=== PATIENT | female | born 1960 | race Caucasian/White ===

== ENCOUNTER → 2016-08-22 | Outpatient (CLI) | payer OTHER | END | disposition home or self-care (01) | LOC: LABWHC1 13:21 | PROVIDERS: ATTEND Thoracic Surgery (Cardiothoracic Vascular Surgery) | DX: Z01.812 Encounter for preprocedural laboratory examination (principal) | CPT/HCPCS: 80051; 82947; 85027; 86850; 86900; 86901 ==

== ENCOUNTER 2016-08-29 08:15 | Day surgery (SDC) | payer OTHER ==
[2016-08-22 14:18] LABS: CH 32.1; CHCM 34.2; HCT 42.9 % (34.0-46.0); HGB 14.4 gm/dL (11.4-16.0); MCH 31.7 pg (25.0-35.0); MCHC 33.6 g/dL (31.0-37.0); MCV 94.3 fL (80.0-100.0); Mean Platelet Volume 7.4; RBC 4.55 m/uL (3.80-5.40); RDW 13.4 % (11.5-15.5); WBC 6.2 k/uL (3.8-10.6)
[2016-08-22 14:38] LABS: Potassium 4.2 mmol/L (3.5-5.1)
[2016-08-25 16:17] VITALS: BMI 27.4
[~2016-08-29 08:15] MED LIST: DEXAMETHASONE SOD PHOSPHATE 10 MG/ML 1 ML VIAL IV ONE; LACTATED RINGERS 1,000 ML IV SCH; LIDOCAINE 1% 20 ML VIAL (10MG/ML) FOR IV START INTRADERMA PRN; MIDAZOLAM 2 MG/2 ML VIAL IV PRN; ONDANSETRON 4 MG/2 ML VIAL IVP ONE; SCOPOLAMINE 1.5MG/72HR PATCH TRANSDERM ONE; ceFAZolin 1,000 MG in DEXTROSE/WATER 1 50ML.BAG IV ONE
[2016-08-29 09:03] LABS: Glucose,Whole Blood 153 mg/dL (75-99)
[2016-08-29] MEDS ORDERED: PROPOFOL 10 MG/ML 20 ML VIAL IV ONE (09:34)
[2016-08-29] MEDS ORDERED: NEOSTIGMINE 1 MG/ML 10 ML VIAL ONE (09:34)
[2016-08-29] MEDS ORDERED: DEXAMETHASONE SOD PHOS (MDV) 100 MG/10 ML VIAL ONE (09:34)
[2016-08-29] MEDS ORDERED: LIDOCAINE 1% INJ 10MG/ML (20 ML MDV) ONE (09:34)
[2016-08-29] MEDS ORDERED: fentaNYL (PF) 50 MCG/ML 2 ML AMP ONE (09:34)
[2016-08-29] MEDS ORDERED: MIDAZOLAM 2 MG/2 ML VIAL ONE (09:34)
[2016-08-29] MEDS ORDERED: SUCCINYLCHOLINE CHLORIDE 100 MG/5 ML SYR IV ONE (09:34)
[2016-08-29] MEDS ORDERED: VECURONIUM 10 MG VIAL IV ONE (09:34)
[2016-08-29] MEDS ORDERED: GLYCOPYRROLATE 0.2 MG/ML 2 ML VIAL ONE (09:34)
[2016-08-29] MEDS ORDERED: LACTATED RINGERS 1,000 ML IV ONE ×2 (10:30→14:15)
[2016-08-29 11:01] VITALS: TEMP 96.8
[2016-08-29] MEDS ORDERED: ONDANSETRON 4 MG/2 ML VIAL IVP ONE (11:06)
[2016-08-29] MEDS: HYDROmorphone 1 MG/ML 1 ML SYRINGE IVP PRN ×2 (11:11→11:20)
[2016-08-29] MEDS ORDERED: PROMETHAZINE INJ 25 MG/ML 1 ML VIAL IVPB ONE (11:17)
[2016-08-29 11:22] LABS: Glucose,Whole Blood 189 mg/dL (75-99)
--- NOTE | 2016-08-29 11:53 | XR ---
EXAMINATION TYPE: XR chest 1V portable DATE OF EXAM: 08/29/2016 COMPARISON: NONE HISTORY: post op Mediastinoscopy TECHNIQUE: Single AP portable frontal upright view of the chest is obtained. FINDINGS: There is low lung volumes with patchy left basilar atelectasis and/or infiltrate. Right lauren ng remains clear. No large pleural effusion or pneumothorax is seen bilaterally. The cardiac silhoue tte size is within normal limits. The osseous structures are intact. IMPRESSION: Lung volumes with patchy left basilar atelectasis and/or infiltrate.
[2016-08-29] MEDS ORDERED: METOCLOPRAMIDE 5 MG/ML 2 ML VIAL IVP ONE (13:31)
[2016-08-29 14:23] VITALS: RESP 18
[2016-08-29 15:12] VITALS: BP 118/63; PULSE 97
--- NOTE | 2016-08-29 15:23 | P.OP ---
Date of Procedure: 08/29/16 Preoperative Diagnosis: Mediastinal lymphadenopathy Postoperative Diagnosis: Same Procedure(s) Performed: Mediastinal endoscopy with lymph node biopsy Implants: Anesthesia: [place] Surgeon: Aníbal Hurtado Older Adult Social Work Specialist #1: Chaitanya Recinos Estimated Blood Loss (ml): 25 IV fluids (ml): 800 Pathology: other (Right paratracheal lymph node sent for pathology and culture) Condition: stable Disposition: PACU Indications for Procedure: Mediastinal lymphadenopathy Operative Findings: Heart rubbery right paratracheal lymph nodes Description of Procedure: The patient was brought to the operating room placed supine on the operating table anesthetized and intubated. The neck was extended and the anterior neck and chest sterilely prepped and draped. Transverse incision was made through the old thyroidectomy incision carried down through skin and subcutaneous tissue. Was continued vertically in the midline between the strap muscles. The pretracheal plane was entered and dissected bluntly with a finger into the mediastinum. Hard rubbery lymph nodes could be palpated. The mediastinoscope was introduced and careful dissection was used to dissected out the lymph nodes. These were sent for permanent section as well as culture. The mediastinum was briefly packed with a sponge. On removing the sponge there was no evident bleeding. Strap muscles were reapproximated with 3-0 Vicryl. Subcutaneous tissues were closed with 3-0 Vicryl. Skin was closed with a running 3-0 Vicryl. Skin glue and a Band-Aid dressing were applied the patient was awakened and transferred to recovery in stable condition. Plan - Discharge Summary New Discharge Prescriptions: Continue Milk Thistle 150 mg PO DAILY glipiZIDE [Glipizide] 5 mg PO DAILY Multivitamins, Thera [Multivitamin (formulary)] 1 tab PO DAILY Loratadine [Claritin] 10 mg PO DAILY metFORMIN HCL [Metformin HCl] 1,000 mg PO BID L.acidoph,Paracasei, B.lactis [Probiotic] 1 each PO DAILY Discharge Medication List L.acidoph,Paracasei, B.lactis [Probiotic] 1 each PO DAILY 08/25/16 [History] Loratadine [Claritin] 10 mg PO DAILY 08/25/16 [History] Milk Thistle 150 mg PO DAILY 08/25/16 [History] Multivitamins, Thera [Multivitamin (formulary)] 1 tab PO DAILY 08/25/16 [History ] glipiZIDE [Glipizide] 5 mg PO DAILY 08/25/16 [History] metFORMIN HCL [Metformin HCl] 1,000 mg PO BID 08/25/16 [History] Follow up Appointment(s)/Referral(s): Juancarlos Kothari MD [STAFF PHYSICIAN] - 09/05/16 12:00 pm (Follow up at the [facility] office.) Aníbal Hurtado MD [STAFF PHYSICIAN] - 09/03/16 12:30 pm Lavonne Pires NPC [REFERRING] - 09/03/16 9:00 am Jody Sargent DO [Doctor of Osteopathic Medicine] - 09/08/16 3:00 pm Patient Instructions/Handouts: *Surgery [facility] - (Anesthesia) Discharge Instructions Outpatient Surgery, Lymph Node Biopsy (DC) Activity/Diet/Wound Care/Special Instructions: BANDAID MAY BE REMOVED TOMORROW. Discharge Disposition: HOME SELF-CARE
== END 2016-08-29 15:26 | disposition home or self-care (01) ==
LOC: OR 08:15
PROVIDERS: ATTEND Thoracic Surgery (Cardiothoracic Vascular Surgery)
DX: L04.0 Acute lymphadenitis of face, head and neck (principal); E11.9 Type 2 diabetes mellitus without complications; M19.90 Unspecified osteoarthritis, unspecified site; Z80.9 Family history of malignant neoplasm, unspecified; Z79.84 Long term (current) use of oral hypoglycemic drugs; Z79.899 Other long term (current) drug therapy; Z91.040 Latex allergy status
CPT/HCPCS: 86900; 86901; 88305; 80051; 82947; 85027; 86850; 88312; 88307; 87116; 87102; 87206; 71010; 39402; J2250; J1100 ×2; J2550; J2710; J2765; J2405; J2001; J3010; J1170; J0690; J0330; J2704